=== PATIENT | female | born 1980 | race Caucasian/White ===

== ENCOUNTER 2019-02-02 14:03 | Observation (INO) ==
[2019-02-02] MEDS ORDERED: Sodium Chloride 0.9% 1,000 ML PRIMARY IV ONE (14:13)
[2019-02-02] MEDS ORDERED: ONDANSETRON 4 MG/2 ML VIAL IVP ONE (14:13)
[2019-02-02] MEDS ORDERED: MORPHINE SULFATE 2 MG/1 ML IVP ONE (14:13)
[2019-02-02 14:33] LABS: BASOPHILS # (AUTO) 0.04 10*3/UL; BASOPHILS % (AUTO) 0.5 % (0-1); EOSINOPHILS # (AUTO) 0.09 10*3/UL; EOSINOPHILS % (AUTO) 1.1 % (0-8); Hematocrit [HCT] 40.1 % (37.0-47.0); Hemoglobin [HGB] 13.5 g/dL (12.0-16.0); LYMPHOCYTES # (AUTO) 3.48 10*3/uL; MEAN CORPUSCULAR HGB CONC 33.7 g/dL (33-37); MEAN CORPUSCULAR VOLUME 92.8 FL (81-99); MONOCYTES # (AUTO) 0.57 10*3/UL (0.3-0.8); NEUTROPHILS # (AUTO) 3.93 10*3/UL; NEUTROPHILS % (AUTO) 48.4 % (50-80); RED BLOOD COUNT 4.32 10^6/uL (4.20-5.40)
[2019-02-02 14:44] LABS: PLATELET MORPHOLOGY COMMENT NORMAL MORPHOLOGY (NORM); RBC MORPHOLOGY COMMENT NORMAL MORPHOLOGY (NORM); WBC MORPHOLOGY COMMENT NORMAL MORPHOLOGY (NORM)
[2019-02-02] MEDS ORDERED: HYDROmorphone 2 MG/1 ML IVP ONE (14:50)
[2019-02-02] MEDS ORDERED: LIDOCAINE MPF 2% - 5 ML (20 MG/1 ML) ONE (16:19)
[2019-02-02] MEDS ORDERED: fentaNYL Inj 250 MCG/5 ML VIAL ONE (16:19)
[2019-02-02] MEDS ORDERED: MIDAZOLAM HCL 2 MG/2 ML VIAL ONE (16:19)
[2019-02-02] MEDS ORDERED: PROPOFOL 10 MG/1 ML (200 MG/20 ML) VIAL IV ONE (16:20)
[2019-02-02] MEDS ORDERED: ceFAZolin Inj 2gm (Premix) 2 GM/50 ML BAG IV ONE ×2 (16:57→17:40)
[2019-02-02] MEDS ORDERED: KETAMINE 100 MG/1 ML - 5 ML ONE (17:34)
[2019-02-02] MEDS ORDERED: BUPivacaine Inj 0.5% PF (5mg/ml) 30ml vial ONE (18:01)
[2019-02-02] MEDS ORDERED: ONDANSETRON 4 MG/2 ML VIAL ONE (18:48)
[2019-02-02] MEDS ORDERED: KETOROLAC 30 MG/1 ML VIAL ONE (18:48)
[2019-02-02] MEDS ORDERED: Lactated Ringers 1,000 ML PRIMARY IV ONE (19:08)
[2019-02-02] MEDS ORDERED: Prochlorperazine Edisylate Inj 10mg/2ml vial IVP PRN (19:51)
[2019-02-02] MEDS ORDERED: LIDOCAINE W/ SODIUM BICARB 0.5 ML SYR SUBD PRN (19:51)
[2019-02-02] MEDS ORDERED: PROMETHAZINE 25 MG/1 ML VIAL IM PRN (19:51)
[2019-02-02] MEDS ORDERED: fentaNYL Inj 100 MCG/2 ML VIAL IVP PRN (19:51)
[2019-02-02] MEDS ORDERED: Prochlorperazine Edisylate Inj 10mg/2ml vial ONE (20:11)
[2019-02-02] MEDS ORDERED: CALCIUM CARBONATE 500 MG (TUMS) CHEWABLE TABLET PO PRN (20:36)
[2019-02-02] MEDS ORDERED: ONDANSETRON 4 MG/2 ML VIAL IVP PRN (20:36)
[2019-02-02] MEDS ORDERED: CELECOXIB 200 MG CAPSULE PO PRN (20:36)
[2019-02-02] MEDS ORDERED: MORPHINE SULFATE 2 MG/1 ML IVP PRN (20:36)
[2019-02-02] MEDS ORDERED: Ondansetron ODT Tab 8 MG TAB PO PRN (20:36)
[2019-02-02] MEDS ORDERED: ACETAMINOPHEN 325 MG TABLET PO PRN (20:36)
[2019-02-02] MEDS ORDERED: BISACODYL 5 MG TABLET PO PRN (20:36)
[2019-02-02] MEDS ORDERED: MAG HYDROX/AL HYDROX/SIMETH 30 ML SUSP PO PRN (20:36)
[2019-02-02] MEDS ORDERED: Prochlorperazine Tab 10 MG TAB PO PRN (20:36)
[2019-02-02] MEDS ORDERED: diphenhydrAMINE 25 MG CAPSULE PO PRN (20:36)
[2019-02-02] MEDS ORDERED: BISACODYL 10 MG SUPPOSITORY RECTAL PRN (20:36)
[2019-02-02] MEDS: D5-1/2NS + 20mEq KCL 1,000 ML PRIMARY IV SCH (20:51)
[2019-02-02] MEDS: oxyCODONE/APAP 7.5/325 Tab 1 TAB TAB PO PRN (22:58)
[2019-02-03] MEDS: ceFAZolin Inj 2gm (Premix) 2 GM/50 ML BAG IV SCH ×2 (00:23→08:32)
[2019-02-03] MEDS: oxyCODONE/APAP 7.5/325 Tab 1 TAB TAB PO PRN ×2 (04:18→08:43)
[2019-02-03 07:09] VITALS: BP 115/57; RESP 16; TEMP 97.6; O2SAT 91
[2019-02-03] MEDS: D5-1/2NS + 20mEq KCL 1,000 ML PRIMARY IV SCH (10:31)
== END 2019-02-03 10:55 | disposition home or self-care (01) ==
LOC: ER 14:03 → MED/SURG 16:00 → OR 16:00
PROVIDERS: ADMIT Orthopaedic Surgery; ATTEND Orthopaedic Surgery